=== PATIENT | female | born 2000 | race Caucasian/White ===

== ENCOUNTER 2020-02-24 20:49 | Outpatient (CLI) | payer OTHER, SELFPAY ==
[~2020-02-24] VITALS: Ht 162.6 cm; Wt 87.4 kg
[2020-02-24 21:12] VITALS: BP 140/73
[2020-02-24 21:16] VITALS: BP 145/62
[2020-02-24 21:31] VITALS: BP 123/65
[2020-02-24 21:46] VITALS: BP 135/80
[2020-02-24 22:01] VITALS: BP 128/72
[2020-02-24 22:16] VITALS: BP 128/80
--- NOTE | 2020-02-24 22:19 | IPNPDOC ---
Obstetrical Progress Note Date of Service Feb 24, 2020 Subjective 19yo at 33+5 presented to triage for decreased FM. She denied VB, LOF, contractions. She denied n/v/d, cp, sob, baird, visual changes, abd pain, f/c, vaginal dc, urinary sx. Objective Vital Signs Date Time Temp Pulse Resp B/P (MAP) Pulse Ox O2 Delivery O2 Flow Rate FiO2 02/24/20 21:12 98.4 81 18 140/73 (95) Room Air Assessment Heart Rate (FHR): 140 Variability: Moderate Accelerations: Positive Decelerations: None Heart Rate Tracing: Category I Assessment and Plan Additional Comments 19yo at 33+5 presented to triage for decreased FM. She had a CAT I tracing that was reactive, there was a questionable deceleration at the beginning of the tracing but the baseline had not yet been established. The remainder of the tracing after the baseline was established was category I. Her MVP was 5.2cm, the baby was cephalic, and there was +FM and +breathing making her BP 10/10. Her VS did reveal a mild range BP. She denied si/sx of pre-eclampsia. She reports that she was worked up for pre-eclampsia earlier this and did not have it. I can see in [facility] that she had normal pre-eclampsia labs on [id number] but I do not see documentation of a diagnosis of GHTN. Repeat pre-eclampsia labs today were normal. Will have her follow up in the clinic in 48h for blood pressure check. Provided with return precautions for si/sx of pre-eclampsia. Will start APFT for diagnosis of GHTN with plan for delivery at 37wk. Provided with routine OB return precautions. CIRA AVALOS DO Feb 24, 2020 22:19
[2020-02-24 22:43] LABS: HEMATOCRIT 31.3 % (36.0-47.0); HEMOGLOBIN 10.5 g/dl (12.0-15.5); MEAN CORPUSCULAR HEMOGLOBIN 30.1 pg (27.0-33.0); MEAN CORPUSCULAR HGB CONC 33.5 g/dl (32.0-36.5); MEAN CORPUSCULAR VOLUME 89.7 fl (80.0-96.0); PLATELET COUNT, AUTOMATED 267 10^3/uL (150-450); RED BLOOD COUNT 3.49 10^6/uL (4.00-5.40); WHITE BLOOD COUNT 11.2 10^3/uL (4.0-10.0)
[2020-02-24 23:15] LABS: ALBUMIN 2.5 GM/DL (3.2-5.2); ALT/SGPT 16 U/L (12-78); BILIRUBIN,TOTAL 0.2 MG/DL (0.2-1.0); BLOOD UREA NITROGEN 8 MG/DL (7-18); CALCIUM LEVEL 8.8 MG/DL (8.5-10.1); CARBON DIOXIDE LEVEL 24 MEQ/L (21-32); CHLORIDE LEVEL 110 MEQ/L (98-107); CREATININE FOR GFR 0.86 MG/DL (0.55-1.30); GLUCOSE, FASTING 85 MG/DL (70-100); POTASSIUM SERUM 4.3 MEQ/L (3.5-5.1); SODIUM LEVEL 140 MEQ/L (136-145); TOTAL PROTEIN 5.6 GM/DL (6.4-8.2)
[2020-02-24 23:38] LABS: CREATININE,RANDOM URINE 29.2 MG/DL; TOTAL PROTEIN,RANDOM URINE 5.6 MG/DL (0.0-12.0)
== END 2020-02-24 23:46 | disposition home or self-care (01) ==
LOC: M LDO 20:49
PROVIDERS: ATTEND Obstetrics & Gynecology
DX: O36.8130 Decreased fetal movements, third trimester, not applicable or unspecified (principal); Z3A.33 33 weeks gestation of pregnancy
CPT/HCPCS: 36415; 59025; 76815; 80053; 82570; 84156; 85027; G0378; G0463

== ENCOUNTER 2020-03-04 23:18 | Outpatient (CLI) | payer OTHER ==
[~2020-03-04] VITALS: Ht 162.6 cm; Wt 84.9 kg
[2020-03-04 23:48] VITALS: BP 138/81
--- NOTE | 2020-03-05 00:25 | IPNPDOC ---
Obstetrical Progress Note Date of Service Mar 05, 2020 Subjective S: 19-year-old 1 at 35 weeks presents with elevated blood pressure at home. This patient has been followed for gestational hypertension. She had a diagnosis of the 14th of this month. She reports intermittent headaches has not taken anything for them denies any visual changes or right upper quadrant pain. She states that at home she wasn't feeling well and took her blood pressure and reports blood pressure 170s systolic and as high as 120 diastolic. She also reports active movements. Denies any vaginal bleeding, leakage of fluid or regular pattern of contractions. O: Blood pressures normal to mild range with serial checks afebrile Category 1 heart tracing heart 140s moderate variability with irregular contractions General appearance: Well-appearing no acute distress Abdomen: Gravid nontender to palpation Neuro: Grossly intact Assessment: 19-year-old 1 at 35 weeks with gestational hypertension currently normotensive and asymptomatic Reassuring status Home with labor and preeclampsia precautions. kick count instructions She'll follow-up with [facility] appointment Objective Vital Signs Date Time Temp Pulse Resp B/P (MAP) Pulse Ox O2 Delivery O2 Flow Rate FiO2 03/04/20 23:48 98.4 116 18 138/81 (100) Assessment Variability: Moderate Accelerations: Positive Heart Rate Tracing: Category I Tocometer Contractions: Yes Frequency: irregular Assessment and Plan Age: 19 : 1 Status: Reassuring MOHSEN MEDINA MD. Mar 05, 2020 00:25
== END 2020-03-05 00:23 | disposition home or self-care (01) ==
LOC: M LDO 23:18
PROVIDERS: ATTEND Obstetrics & Gynecology
DX: O13.3 Gestational [pregnancy-induced] hypertension without significant proteinuria, third trimester (principal); Z3A.35 35 weeks gestation of pregnancy
CPT/HCPCS: 59025; G0378; G0463

== ENCOUNTER 2020-03-08 20:03 | Outpatient (CLI) | payer OTHER ==
[~2020-03-08] VITALS: Ht 162.6 cm; Wt 91.6 kg
[2020-03-08 20:24] VITALS: BP 108/52
[2020-03-08] MEDS ORDERED: BUTA-198 PO (20:39)
[2020-03-08] MEDS ORDERED: MULTTAB20 PO (20:39)
[2020-03-08 21:19] LABS: APPEARANCE, URINE CLOUDY (CLEAR); BACTERIA, URINE AUTO 1+ (NEGATIVE); BILIRUBIN, URINE AUTO NEGATIVE (NEGATIVE); BLOOD, URINE BLOOD NEGATIVE (NEGATIVE); COLOR, URINE YELLOW (YELLOW); GLUCOSE, URINE (UA) AUTO NEGATIVE (NEGATIVE); KETONE, URINE AUTO NEGATIVE (NEGATIVE); LEUKOCYTE ESTERASE, URINE AUTO 2+ (NEGATIVE); MUCUS, URINE SMALL (NEGATIVE); NITRITE, URINE AUTO NEGATIVE (NEGATIVE); PROTEIN, URINE AUTO NEGATIVE (NEGATIVE); RBC, URINE AUTO 1 /HPF (0-3); SPECIFIC GRAVITY URINE AUTO 1.009 (1.002-1.035); SQUAMOUS EPITHELIAL CELL UR AU 14 /HPF (0-6); TRANSITIONAL EPITHELIAL AUTO 1 /HPF; UROBILINOGEN, URINE AUTO 0.2 mg/dL (0.0-2.0); WBC, URINE AUTO 41 /HPF (0-3)
[2020-03-08 21:36] VITALS: BP 112/59
--- NOTE | 2020-03-08 21:42 | IPNPDOC ---
Obstetrical Progress Note Date of Service Mar 08, 2020 Subjective 19yo at 35+4 presents for concern for ROM x2 days, clear, no odor. She reports intermittent non-painful contractions. She reports some pink mucous discharge yesterday. She denied decreased FM. She denied n/v/d, cp, sob, baird, visual changes, f/c, vaginal dc, urinary sx. Objective Vital Signs Date Time Temp Pulse Resp B/P (MAP) Pulse Ox O2 Delivery O2 Flow Rate FiO2 03/08/20 20:24 99.0 97 16 108/52 (70) Assessment Heart Rate (FHR): 145 Variability: Moderate Accelerations: Positive Decelerations: None Tocometer Contractions: Yes Frequency: irregular Sterile Vaginal Examination Dilation: None Station: -3 Cervical Consistency: Firm Cervical Position: Posterior Postion/Presentation: Cephalic presentation (by US) Assessment and Plan Status: Reassuring Additional Comments 19yo at 35+4 presents for concern for ROM. Normal VS. CAT I tracing, reactive. Contractions irregular. SVE C/T/H. No pooling. No ferning. Negative nitrazine. Ceph by US. MVP 4.4cm. ROM and labor are unlikley at this time. ANDREA positive for yeast. WP negative. Fluconazole 150mg x1 given in triage for vaginal candidiasis Provided with routine OB return precautions Otherwise to follow up at next [facility] Physical Examination General Exam: Positive: Alert, Cooperative, No Acute Distress ENT EXAM: Positive: Atraumatic, Mucous membr. moist/pink Neck Exam: Positive: Supple Heart Exam: Positive: Rate Normal Abdomen Exam: Positive: Soft Female Exam: Positive: Nl Ext Genitalia Skin Exam: Positive: Nl turgor and temperature Psych Exam: Positive: Mental status NL CIRA AVALOS DO Mar 08, 2020 21:42
[2020-03-08] MEDS ORDERED: FLUCONAZOLE 50MG TABLET PO ONE (21:45)
== END 2020-03-08 22:00 | disposition home or self-care (01) ==
LOC: M LDO 20:03
PROVIDERS: ATTEND Obstetrics & Gynecology
DX: O47.03 False labor before 37 completed weeks of gestation, third trimester (principal); B37.3 Candidiasis of vulva and vagina; Z3A.35 35 weeks gestation of pregnancy
CPT/HCPCS: 59025; 76815; 81001; 87086; G0378; G0463

== ENCOUNTER 2020-03-16 10:23 | Inpatient (IN) | payer OTHER ==
[2020-03-16] VITALS (44 sets, daily range): BP systolic 112–184; BP diastolic 58–110
[~2020-03-16] VITALS: Ht 162.6 cm; Wt 91.4 kg
[~2020-03-16 10:23] MED LIST: BUTA-198 PO; MULTTAB20 PO
[2020-03-16] MEDS ORDERED: NIFEdipine 10 MG CAP As Ordered ONE (10:38)
[2020-03-16] MEDS ORDERED: MAGNESIUM *L&D* 4GM/100ML BAG (40MG/ML) As Ordered ONE (10:40)
[2020-03-16] MEDS ORDERED: MAGNESIUM SULFATE 4% INJ 20GM/500ML (40MG/ML) As Ordered ONE (10:41)
[2020-03-16] MEDS ORDERED: ZOLO25TA PO (10:43)
[2020-03-16] MEDS ORDERED: MAG Sulf (L&D) 4 GM/100 ML 4 GM in IV 1 EA IV ONE (10:45)
[2020-03-16] MEDS: NIFEdipine 10 MG CAP PO ONE ×2 (10:45→10:50)
[2020-03-16] MEDS ORDERED: CALCIUM GLUCONATE 1,000 MG in D5W MINI-BAG PLUS 100 ML IV PRN (10:45)
[2020-03-16] MEDS ORDERED: LABETALOL 100MG/20ML VIAL As Ordered ONE (10:51)
--- NOTE | 2020-03-16 10:59 | HPEPDOC ---
Obstetrical History & Physical General Date of Admission History of Present Illness 18yo at 36+5 by LMP and 8wk US presented to clinic and was noted to have a severe range BP that was persistent on 5min recheck, she already had a diagnosis of GHTN. She noted she had a headache yesterday that resolved with fioricet. She otherwise denied n/v/d, cp, sob, baird now, visual changes, abd pain, f/c, vb, lof, decreased fm, contractions. APC 1. GHTN, now with pre-eclampsia with severe features 2. 72# gain in 3. allergy to PCNs and morphine 4. headaches chronically 5. depression on zoloft 6. GBS unknown and 7. CARD LACER JACQUARD resolved, quad normal Antepartum Course Height (inches): 64 Pre- weight (lbs.): 125 Admission Weight (lbs.): 197 Change in Weight (lbs.): 72 Past Medical History Past Obstetrical History : Past Obstetrical History: [employer] History: No pertinent history Past Medical History Medical History depression, headaches Surgical History: Appendectomy, Other (knee surgery) Family History Significant Family History: No pertinent family hx Social History Marital Status: Family situation: Spouse/partner home Psychosocial History: Depression * Smoker: non-smoker Alcohol: Denies Drugs: denies Imunizations Tdap status: current Influenza Status: declined Allergies Coded Allergies: amoxicillin (Verified Allergy, Severe, ANAPHYLAXIS, 03/08/20) ANAPHYLAXIS morphine (Verified Allergy, Severe, ANAPHYLAXIS, 03/08/20) ANAPHYLAXIS Medications Scheduled No122/Iron/Folic Acid ( Multi Tablet) 1 Each Tablet, 1 TAB PO DAILY Sertraline Hcl (Zoloft) 25 Mg Tablet, 25 MG PO DAILY Scheduled PRN Butalb/Acetaminophen/Caffeine (Xahblp-Ephluuws-Vapl 50-325-40) 1 Each Tablet, 1 TAB PO Q6HP PRN for HEADACHE Physical Examination Physical Examination GENERAL: Alert and oriented times three. BREAST: . ABDOMEN: Gravid and non-tender to touch. FETUS: Is vertex (VTX) by sterile vaginal examination (SVE), fetus is vertex (VTX) by [facility]. HEART RATE: Regular rate and rhythm. LUNGS: Clear to auscultation (CTA). EXTREMITIES: No edema. No clonus. Deep tendon reflexes (DTRs) + . Pertinent Laboratoy Data Blood Type: A+ RBC Antibody Screen: Negative HIV: Negative Hepatitis B: Negative Rapid Plasma Reagin: Nonreactive Rubella: Immune Varicella: Immune Chlamydia/Gonorrhea: Negative Group B Streptococcus: Unknown Quad Screen Test: Negative Cystic Fibrosis: Negative Glucose Tolerance Test: 131 Anatomy Ultrasound Placenta Location: Fundal Normal Anatomy: No (CARD LACER JACQUARD, resolved on repeat scan) Assessment Heart Rate (FHR): 140 Variability: Moderate Accelerations: Positive Tocometer Contractions: No Multi-drug resistant Organism: No history of MDRO Assessment/Plan Assessment 18yo at 36+5 by LMP and 8wk US admitted for GHTN that has progressed to pre-eclampsia with severe features based on persistent severe range BP requiring 20mg IV labetalol on admission. She denied si/sx of pre-eclampsia at this time. APC 1. GHTN, now with pre-eclampsia with severe features 2. 72# gain in 3. allergy to PCNs and morphine 4. headaches chronically 5. depression on zoloft 6. GBS unknown and 7. CARD LACER JACQUARD resolved, quad normal Plan - pre-eclampsia labs with admit labs - GBS ppx for unknown with vanc for PCN allergy - 4g Mg bolus and 2g/h with routine clinical Mg checks - IV antihypertensives for persistent severe range BPs - BP monitoring per pre-e protocol - seizure prophylaxis - strict I/Os - VS per pre-e protocol - clear liquid diet - bedrest as seizure ppx - patient can select em vs bedside comode for strict I/Os - continue zoloft for depression - after patient is admitted fully to the [facility] will perform SVE and begin induction as indicated by her exam - educated on r/b/a of vaginal, , and operative delivery. educated on possible complications of labor and delivery. educated on pre-eclampsia CIRA AVALOS DO Mar 16, 2020 10:59
[2020-03-16] MEDS ORDERED: LABETALOL 100MG/20ML VIAL IV STA (11:10)
[2020-03-16] MEDS: MAG Sulf (OBGYN) 20GM/500ML 20,000 MG in IV 1 EA IV SCH ×2 (11:15→21:23)
[2020-03-16] MEDS: LR 1,000 ML IV SCH (11:16)
[2020-03-16 11:23] LABS: HEMATOCRIT 32.4 % (36.0-47.0); HEMOGLOBIN 10.6 g/dl (12.0-15.5); MEAN CORPUSCULAR HEMOGLOBIN 28.7 pg (27.0-33.0); MEAN CORPUSCULAR HGB CONC 32.7 g/dl (32.0-36.5); MEAN CORPUSCULAR VOLUME 87.8 fl (80.0-96.0); PLATELET COUNT, AUTOMATED 251 10^3/uL (150-450); RED BLOOD COUNT 3.69 10^6/uL (4.00-5.40); WHITE BLOOD COUNT 8.5 10^3/uL (4.0-10.0)
[2020-03-16] MEDS: BETAMETHASONE SOLUSPAN 6MG/ML 5ML VIAL (J0702 PER 3MG) IM SCH (11:35)
[2020-03-16 11:55] LABS: ALT/SGPT 16 U/L (12-78); BILIRUBIN,TOTAL 0.2 MG/DL (0.2-1.0); LDH LACTATE DEHYDROGENASE 176 U/L (84-246); URIC ACID 6.4 MG/DL (2.6-6.0)
[2020-03-16] MEDS ORDERED: VANCOMYCIN HCL 1,000 MG, VIAL MATE ADAPTER 1 EACH in D5W 250 ML IV SCH (12:00)
[2020-03-16 12:45] LABS: TOTAL PROTEIN,RANDOM URINE 16.3 MG/DL (0.0-12.0)
--- NOTE | 2020-03-16 13:09 | IPNPDOC ---
Obstetrical Progress Note Date of Service Mar 16, 2020 Subjective To room for routine assessment. Patient has no complaints or concerns. Assessment Heart Rate (FHR): 140 Variability: Moderate Accelerations: Positive Decelerations: None Heart Rate Tracing: Category I Tocometer Contractions: Yes Frequency: irregular Sterile Vaginal Examination Dilation: 1cm Station: -3 Cervical Consistency: Medium Cervical Position: Posterior Postion/Presentation: Cephalic presentation (by US) Assessment and Plan Status: Reassuring Anticipate: Vaginal Delivery Additional Comments CAT I tracing, reactive. VS now normotensive to mild range. No si/sx of pre-e. SVE 1/T/H. DLFB placed, will also give cytotec 25mcg PO. CIRA AVALOS DO Mar 16, 2020 13:09
[2020-03-16] MEDS: miSOPROStol 25 MCG 1/4 TAB (S0191) PO SCH ×3 (13:25→20:52)
--- NOTE | 2020-03-16 16:28 | IPNPDOC ---
Obstetrical Progress Note Date of Service Mar 16, 2020 Objective Vital Signs Date Time Temp Pulse Resp B/P (MAP) Pulse Ox O2 Delivery O2 Flow Rate FiO2 03/16/20 13:39 88 145/88 (107) 03/16/20 11:39 97.7 18 Assessment Heart Rate (FHR): 130 Variability: Moderate Accelerations: Positive Decelerations: None Heart Rate Tracing: Category I Tocometer Contractions: Yes Frequency: irregular Assessment and Plan Status: Reassuring Additional Comments Strip note: DLFB still firmly in place per report. She recieved cytotec at 1300. No si/sx of magnesium toxicity. Patient is currently on Mg 2g/h and seizure precautions. She has no si/sx of pre-eclampsia. Throughout the day she has had 1 additional severe range after admission but it was mild range on repeat. she recieved BMTZ at 1130. Plan for cytotec q4h 25mcg PO until DLFB out per unit SOP. GBS testing was located and was negative so vanc for GBS ppx was discontinued. Pre-eclampsia/admit labs returned without abnormalities. CIRA AVALOS DO Mar 16, 2020 16:28
--- NOTE | 2020-03-16 20:58 | IPNPDOC ---
Obstetrical Progress Note Date of Service Mar 16, 2020 Subjective Strip note. Objective Vital Signs Date Time Temp Pulse Resp B/P (MAP) Pulse Ox O2 Delivery O2 Flow Rate FiO2 03/16/20 20:15 97.3 03/16/20 19:16 109 16 136/82 (100) Room Air Assessment Heart Rate (FHR): 120 Variability: Moderate Accelerations: Positive Decelerations: None Heart Rate Tracing: Category I Tocometer Contractions: Yes Frequency: regular Assessment and Plan Status: Reassuring Additional Comments DAILY tracing, reactive. VS normotensive to mild range BPs. One severe range with immeiate repeat mild range. Per report no si/sx of pre-eclampsia or Mg toxicity. Good UOP. Contractions not yet strong. Will proceed with second dose of cytotec 25mcg PO as they have spaced out some. Plan for SVE if palpating stronger or before next dose for possible DLFB. CIRA AVALOS DO Mar 16, 2020 20:58
[2020-03-17] VITALS (89 sets, daily range): BP systolic 104–183; BP diastolic 55–97
[2020-03-17] MEDS: miSOPROStol 25 MCG 1/4 TAB (S0191) PO SCH ×2 (01:21→06:19)
--- NOTE | 2020-03-17 01:30 | IPNPDOC ---
Obstetrical Progress Note Date of Service Mar 17, 2020 Subjective Strip note. Objective Vital Signs Date Time Temp Pulse Resp B/P (MAP) Pulse Ox O2 Delivery O2 Flow Rate FiO2 03/17/20 00:16 97.5 93 17 120/63 (82) 03/16/20 19:16 Room Air Assessment Heart Rate (FHR): 120 Variability: Moderate Accelerations: Positive Decelerations: None Heart Rate Tracing: Category I Tocometer Contractions: Yes Frequency: regular Assessment and Plan Status: Reassuring Anticipate: Vaginal Delivery Additional Comments CAT I tracing, reactive. DLFB in place. VS now normotensive. No si/sx of pre- eclampsia or Mg toxicity. Will continue IOL with DLFB/cytotec until cytotec 4 doses or until DLFB comes out then will transition to pitocin. CIRA AVALOS DO Mar 17, 2020 01:30
[2020-03-17 05:43] LABS: HEMATOCRIT 32.2 % (36.0-47.0); HEMOGLOBIN 10.5 g/dl (12.0-15.5); MEAN CORPUSCULAR HEMOGLOBIN 28.7 pg (27.0-33.0); MEAN CORPUSCULAR HGB CONC 32.6 g/dl (32.0-36.5); PLATELET COUNT, AUTOMATED 287 10^3/uL (150-450); RED BLOOD COUNT 3.66 10^6/uL (4.00-5.40); WHITE BLOOD COUNT 15.6 10^3/uL (4.0-10.0)
[2020-03-17 06:07] LABS: ALBUMIN 2.4 GM/DL (3.2-5.2); ALT/SGPT 13 U/L (12-78); BILIRUBIN,TOTAL 0.2 MG/DL (0.2-1.0); BLOOD UREA NITROGEN 7 MG/DL (7-18); CALCIUM LEVEL 6.9 MG/DL (8.5-10.1); CARBON DIOXIDE LEVEL 20 MEQ/L (21-32); CHLORIDE LEVEL 107 MEQ/L (98-107); CREATININE FOR GFR 0.67 MG/DL (0.55-1.30); GLUCOSE, FASTING 118 MG/DL (70-100); MAGNESIUM LEVEL 6.4 MG/DL (1.8-2.4); POTASSIUM SERUM 4.4 MEQ/L (3.5-5.1); SODIUM LEVEL 137 MEQ/L (136-145); TOTAL PROTEIN 5.3 GM/DL (6.4-8.2)
[2020-03-17] MEDS: MAG Sulf (OBGYN) 20GM/500ML 20,000 MG in IV 1 EA IV SCH ×2 (07:29→17:42)
[2020-03-17] MEDS ORDERED: OXYTOCIN DRIP 30 UNITS in IV 1 EA IV SCH ×2 (09:00→10:15)
[2020-03-17] MEDS ORDERED: SLF 3 ML SYR IV PRN (11:15)
[2020-03-17] MEDS: BETAMETHASONE SOLUSPAN 6MG/ML 5ML VIAL (J0702 PER 3MG) IM SCH (11:23)
[2020-03-17] MEDS: SLF 3 ML SYR IV SCH ×2 (11:23→22:00)
[2020-03-17] MEDS: LR 1,000 ML IV SCH (12:11)
[2020-03-17 19:10] LABS: HEMATOCRIT 33.8 % (36.0-47.0); MEAN CORPUSCULAR HEMOGLOBIN 28.9 pg (27.0-33.0); MEAN CORPUSCULAR HGB CONC 32.5 g/dl (32.0-36.5); MEAN CORPUSCULAR VOLUME 88.7 fl (80.0-96.0); PLATELET COUNT, AUTOMATED 279 10^3/uL (150-450); RED BLOOD COUNT 3.81 10^6/uL (4.00-5.40)
[2020-03-17] MEDS ORDERED: FENTANYL 2MCG/ML ROPIVACAINE 0.2% IN 0.9% NACL 100ML IVBAG As Ordered ONE (20:10)
[2020-03-17] MEDS ORDERED: LACTATED RINGER'S 1000 ML IV PRN (20:37)
[2020-03-17] MEDS ORDERED: REFRIGERATOR IV KEYS XX PRN (20:37)
[2020-03-17] MEDS ORDERED: diphenhydrAMINE 50MG/ML VIAL (J1200) IV PRN (20:37)
[2020-03-17] MEDS ORDERED: EPIDURAL COMMENT XX SCH (20:37)
[2020-03-17] MEDS ORDERED: ONDANSETRON 4MG/2ML VIAL IV PRN (20:37)
[2020-03-17] MEDS ORDERED: FENTANYL/ROPIVACAINE/NACL BAG 100 ML EPIDURAL SCH (20:37)
[2020-03-17] MEDS ORDERED: EPIDURAL/PCA KEYS XX PRN (20:37)
[2020-03-17] MEDS ORDERED: NALOXONE INJ 0.4MG/1ML VIAL (J2310 PER 1MG) IV PRN (20:37)
[2020-03-17] MEDS ORDERED: ePHEDrine SULFATE 25 MG/5 ML(5MG/ML) SYRINGE IV PRN (20:37)
[2020-03-18] VITALS (55 sets, daily range): BP systolic 124–192; BP diastolic 57–100
[2020-03-18] MEDS ORDERED: BUTORPHANOL 2 MG/ML INJ (J0595) IV ONE ×3 (03:00→08:30)
[2020-03-18] MEDS ORDERED: PROMETHAZINE INJ 25 MG/ML VIAL (J2550) IM ONE (03:00)
[2020-03-18] MEDS: SLF 3 ML SYR IV SCH (06:00)
[2020-03-18] MEDS ORDERED: PROMETHAZINE INJ 25 MG/ML VIAL (J2550) IV PRN (08:30)
[2020-03-18] MEDS: MAG Sulf (OBGYN) 20GM/500ML 20,000 MG in IV 1 EA IV SCH (10:45)
[2020-03-18] MEDS: LR 1,000 ML IV SCH (10:54)
[2020-03-18] MEDS ORDERED: OXYTOCIN 30 UNITS IN 0.9% NaCl 500ML IV BAG (J2590) As Ordered ONE (12:21)
[2020-03-18] MEDS ORDERED: OXYTOCIN DRIP 30 UNITS in IV 1 EA IV SCH (12:33)
[2020-03-18] MEDS ORDERED: ACETAMINOPHEN 500 MG TAB PO PRN (12:45)
[2020-03-18] MEDS ORDERED: RHOGAM 300 MCG (1500 IU) INJ (J2790) IM SCH (12:45)
[2020-03-18] MEDS ORDERED: IBUPROFEN 800 MG TAB PO PRN (12:45)
[2020-03-18] MEDS ORDERED: DIBUCAINE 1% OINTMENT 30GM TOP PRN (12:45)
[2020-03-18] MEDS ORDERED: DOCUSATE SODIUM 100 MG CAP PO PRN (12:45)
[2020-03-18] MEDS ORDERED: MEASLES,MUMPS,RUBELLA VACCINE INJ (MMR-II) (90707) SC SCH (12:45)
[2020-03-18] MEDS ORDERED: METHYLERGONOVINE MALEATE 0.2 MG TAB PO PRN (12:45)
[2020-03-18] MEDS ORDERED: ANUSOL HC CREAM 30GM TOP PRN (12:45)
[2020-03-18] MEDS ORDERED: MOM 30ML SUSPENSION UDC PO PRN (12:45)
[2020-03-18] MEDS ORDERED: ACETAMINOPHEN TAB 650MG DOSE (2X325MG) PO PRN (12:45)
--- NOTE | 2020-03-18 13:19 | DNPDOC ---
[facility] Delivery Note Delivery Note DATE OF DELIVERY: 03/18/2020 TIME OF : 1201 GENDER: Male. APGARS: 6 and 8. WEIGHT: 2730 grams or 6 pounds 0 ounces. LACERATIONS:. 1MLL ANESTHESIA: none ESTIMATED BLOOD LOSS: 300ml COUNTS: 5 laparotomy sponges accounted for prior to after delivery. 2 Shapes removed from delivery field. DELIVERY NOTE: On 03/18/2020 at 1201, Mrs. Viramontes a 19-year-old 1 now para 1, had a spontaneous vaginal delivery of viable male infant, Apgars, 6 and 8 and weight 2730 g or 6 lbs. 0 oz. Head was delivered occiput anterior (OA), followed by delivery of the shoulders and corpus. was handed to mom with a good cry. Cord was clamped times two and was cut by support person under my direction. Placenta was then drained and delivered grossly intact. A premixed bag of 500 mL of normal saline with 30 units of Pitocin was then bolused along with uterine massage until the uterus was firm. On inspection, there was a 1MLL repaired with 3-0 Vicryl. On reinspection, cervix, vagina, perineum was grossly intact and hemostatic. Mom and baby in recovery on stable condition. The couple decided to name in son, MOHSEN Tilley MD. Mar 18, 2020 13:19
[2020-03-18] MEDS ORDERED: MAG Sulf (OBGYN) 20GM/500ML 20,000 MG in IV 1 EA IV SCH (14:45)
[2020-03-18] MEDS ORDERED: LIDOCAINE 1% MDV 20ML VIAL INFIL ONE (15:00)
[2020-03-18] MEDS: IBUPROFEN 600MG TAB PO PRN (16:35)
[2020-03-19] VITALS (16 sets, daily range): BP systolic 127–175; BP diastolic 59–90
[2020-03-19] MEDS: IBUPROFEN 600MG TAB PO PRN ×2 (06:59→19:37)
[2020-03-19] MEDS: PRENATAL VITAMINS CHEWABLE TABLET PO SCH (07:24)
--- NOTE | 2020-03-19 12:42 | IPN ---
DATE: 03/17/2020 SUBJECTIVE: This lady is a 19-year-old 1, para 0, at 36 and 6 day who is a direct admission from the office because of elevated blood pressure in the severe range areas. She has a headache but she normally has headaches which resolve with Fioricet. She had received a em bulb and Cytotec 25 mg and she has had one shot of Betamethasone at 11:30 a.m. Her lab work shows that her protein creatinine ratio is .159, her uric acid elevated at 6.4, mag level is at 6.4 after therapeutic dose and running at 2 grams an hour. PHYSICAL EXAMINATION: This morning, her blood pressure is labile but it is all within either normal or mid range blood pressures. Reflexes are 2-3+. She has some pedal edema. She is shaking but I think it is secondary to anxiety. Urine voiding is going well and she has a moderate output. We removed the em catheter bulb. She is posterior, high, not engaged in the pelvis, vertex. No vag bleeding or loss. Maybe 2 cm. Category 1 strip. PLAN: Augment with Pitocin, Epidural as needed. Plan of care reviewed with the patient and . YAAKOV
--- NOTE | 2020-03-19 12:45 | IPN ---
DATE: 03/17/2020 TIME: 1930 hours This lady is a 18-year-old, 1, para 0 at 36 and now 6, was admitted straight from the clinic because of severe range blood pressures. She had Mcleod bulb instituted and eventually had magnesium sulfate instituted for preeclamptic prophylaxis. The Mcleod bulb catheter was removed. She had Pitocin running up to 20 milliunits per minute, category 1 strip. At 1930 hours, we evaluated her, she was 3 cm, posterior, soft, 60% effaced, -3 station, category 1 strip, an artificial rupture of membranes (AROM) was done draining clear liquor. Vital signs: Her blood pressure is 136/86, respirations 18, pulse 94, and temperature is 97.6. Pitocin was pulled back because of the AROM and we had a discussion regarding analgesia in the form of an epidural. Patient will reassess her pain level and we will order a consultation with anesthesia for epidural. At this point, she is going to start progressing and we anticipate vaginal delivery as long as category 1 strip is maintained. Her magnesium level on reevaluation was 7.2, previously 6.4. Her hematology: Her hemoglobin presently is 11.0, hematocrit 33.8, and platelets are 279. Is safe to proceed. [facility] [place]
--- NOTE | 2020-03-19 13:15 | IPNPDOC ---
Progress Note Date of Service: Mar 19, 2020 Day#: 1 Progress Note Cat is a 19yo G1 now P1 s/p after IOL For preeclampsia with severe feat ures. She has remained asymptomatic since delivery. UOP excellent. BP noted to have occasional severe range attributed to displaced cuff as repeat BP after replacement of cuff was normal. She has now completed 24hrs of magnesium therapy . Will discontinue magnesium therapy now and transfer to [facility]. Will continue to monitor BPs, if severe-range develop will start on PO antihypertensives. VS, I&O, 24H, Fishbone Vital Signs/I&O Vital Signs Date Time Temp Pulse Resp B/P (MAP) Pulse Ox O2 Delivery O2 Flow Rate FiO2 03/19/20 11:20 97.4 20 99 Room Air 03/19/20 11:02 77 145/87 (106) I&O- Last 24 Hours up to 6 AM 03/19/20 06:00 Intake Total 4872 ml Output Total 4700 ml Balance 172 ml TRAV GUNN DO Mar 19, 2020 13:15
--- NOTE | 2020-03-19 16:26 | IPN ---
DATE: 03/17/2020 SUBJECTIVE: This lady was induced for severe range blood pressures. She had Pitocin running. Mcleod bulb was in place. We removed the Mcleod bulb, found her to be 2 cm, very posterior, -4 station. Therefore, we initiated Pitocin, starting at 2 milliunits per minute and increasing 2 x 2 x 40. We anticipate some progression. Category 1 strip. Her blood pressure on evaluation was 138/81, respirations 18, pulse 102 and temperature is 97.1. ASSESSMENT/PLAN: Presently with the category 1 strip. Reflexes are normal. Respirations are intact. Safe to proceed. Edited: roberto 03/19/2020 1629 MTDD
--- NOTE | 2020-03-19 16:28 | IPN ---
DATE: 03/17/2020 SUBJECTIVE: This lady was admitted for gestational hypertension with severe range blood pressure. She was started on mag sulfate, Mcleod bulb catheter and Pitocin. On assessment presently, the cervix is soft. She is 3 cm posterior with bulging membranes, -3 station, category 1 strip. She is going to have planned AROM. At the present time is not having significant pain management issues. Again, we offered epidural, which will help control her blood pressures and maintain her labor pattern. Her vital signs presently are 137/86, respirations 18, pulse 96 and she is afebrile. ASSESSMENT/PLAN: If safe to proceed, will reevaluate in two hours for rupture of membranes. The patient expressed understanding plan of care. YAAKOV
[2020-03-20 02:00] VITALS: BP 135/72
[2020-03-20 05:38] VITALS: BP 118/74
[2020-03-20] MEDS: PRENATAL VITAMINS CHEWABLE TABLET PO SCH (08:56)
[2020-03-20] MEDS: IBUPROFEN 600MG TAB PO PRN (08:56)
--- NOTE | 2020-03-20 09:29 | IPN ---
DATE: 03/17/2020 TIME OF SERVICE: 2200 hours This lady is a 36 and 6 now who was admitted from the clinic because of severe range blood pressures and she was having induction of labor because of her severe range blood pressures. She was having adequate contractions on magnesium sulfate with an appropriate therapeutic level and Pitocin. She had a little bit of a leak and then had an artificial rupture of membranes (AROM) with clear liquor, at which time her contractions picked up and she requested an epidural. Anesthesia was involved and the epidural turned into a very high spinal in which the patient was having difficulty in breathing, could not feel any feeling from her thoracic area down to her toes. She required vigorous stimulation in order to breathe and we had an Ambu and were ready to ventilate the patient if required. The Pitocin was turned off and the magnesium sulfate had to be turned off in order for her to be able to recover from this high spinal. During the time that the high spinal was present, her blood pressures were in the mid range, anywhere from 147/84 to 145/96 to 144/85. The heart rate variability was minimal but there was no decelerations and her contractions petered out. She eventually started to get some feeling back and was able to breathe. Her blood pressures came down to 126/79, 133/82, 136/88. The heart rate returned to moderate variability with accelerations with good [id number] and a normal baseline of around 130. We initiated again her magnesium sulfate at 1 gram/hr as she was starting to have some tremulous activity, and after discussing with her mother we find that she had pseudoseizures for which they treated with Ativan although that is not indicated in her chart nor did she divulge that during any of her visits to the office. Presently, she is much better, she is breathing on her own, does not require stimulation. Contractions are still spaced but we have good variability and after a comfortable period of time with the magnesium sulfate running, we will initiate Pitocin. At the present time, it is safe to proceed. YAAKOV
[2020-03-20 10:00] VITALS: BP 142/76
[2020-03-20] MEDS ORDERED: DOCU100C16 PO (12:47)
[2020-03-20] MEDS ORDERED: DIBU10OI TOP (12:47)
[2020-03-20] MEDS ORDERED: IBUP80TA PO (12:47)
--- NOTE | 2020-03-24 09:43 | DS ---
DATE OF ADMISSION: 03/16/2020 DATE OF DISCHARGE: 03/20/2020 This is a 19-year-old 1, now para 1 who was admitted for induction of labor for gestational hypertension and pre-eclampsia. She had initially intravenous (IV) medications for pain, then had an epidural, which ended up as a very high spinal, requiring breathing resuscitation. At that time we had to turn off the Pitocin, turn off the magnesium sulfate, and the epidural catheter was pulled. She eventually got fully dilated. Without any further medication delivered a live- male infant, weighing 6 pounds 0 ounces, 2730 grams, scores of 6 and 8 at one and five minutes, respectively. her hemoglobin was 11.0, hemoglobin 33.8, and platelets were 279. Her chemistry tracking during her induction and labor: Her magnesium levels were at therapeutic levels, and her uric acid was 6.4. Her protein/creatinine ratio was in the range for delivery. On discharge, her blood pressure was 142/76, respirations 17, pulse 71, temperature 98.3. We discussed phlebitis, cystitis, mastitis, endometritis, and cellulitis, diet, exercise, pain management, perineal, breast, and wound care. On discharge, she is normocephalic, atraumatic. Neck: Full range of motion. Pupils equal and reactive to light. Distal pulses are symmetric. No evidence of deep venous thrombosis (DVT), pulmonary embolus (PE), or superficial phlebitis. Chest is clear bilaterally to bases. No wheezes or rhonchi. No costovertebral angle (CVA) tenderness. Abdomen soft. Four-quadrant bowel sounds are noted. Perineum is intact. She has no rashes, lesions or pruritus. No arthralgia, myalgia. No complaints of cough, wheeze, shortness of breath, or dyspnea on exertion. No nausea, vomiting, diarrhea, or constipation. No urgency or frequency. In summary, we have a 36-5/7 weeks, 1, induced for gestational hypertension, query pre-eclampsia, delivered a live- male infant. Presently the baby is in intensive care unit (NICU). Other had 24 hours of magnesium sulfate. Is now off the magnesium sulfate, feeling much better, and she is going to be discharged home. She has a 2-week blood pressure check at [facility] and a 6-week check. All questions were answered. Medications were dispensed at [place]. Patient was discharged improved. [facility]
== END 2020-03-20 12:55 | disposition home or self-care (01) | DRG 807 ==
LOC: M LDO 10:23 → M LDI 10:50 → M OBS 03-19 14:36
PROVIDERS: ADMIT Registered Nurse Maternal Newborn; ATTEND Registered Nurse Maternal Newborn
PROC: 3E0DXGC Introduction of Other Therapeutic Substance into Mouth and Pharynx, External Approach (ICD-10-PCS; 2020-03-16)
PROC: 3E033VJ Introduction of Other Hormone into Peripheral Vein, Percutaneous Approach (ICD-10-PCS; 2020-03-16)
PROC: 10907ZC Drainage of Amniotic Fluid, Therapeutic from Products of Conception, Via Natural or Artificial Opening (ICD-10-PCS; 2020-03-17)
PROC: 10E0XZZ Delivery of Products of Conception, External Approach (ICD-10-PCS; principal; 2020-03-18)
PROC: 0HQ9XZZ Repair Perineum Skin, External Approach (ICD-10-PCS; 2020-03-18)
DX: O14.14 Severe pre-eclampsia complicating childbirth (principal); Z37.0 Single live birth; Z3A.36 36 weeks gestation of pregnancy; F32.9 Major depressive disorder, single episode, unspecified; O99.344 Other mental disorders complicating childbirth; Z88.0 Allergy status to penicillin; Z88.5 Allergy status to narcotic agent; O70.0 First degree perineal laceration during delivery

== ENCOUNTER 2020-08-28 19:39 | Emergency (ER) | payer OTHER ==
[~2020-08-28] VITALS: Ht 162.6 cm; Wt 77.5 kg
[~2020-08-28 19:39] MED LIST changes: +DIBU10OI TOP; +DOCU100C16 PO; +IBUP80TA PO; +ZOLO25TA PO
[2020-08-28 19:45] VITALS: BP 131/80
[2020-08-28] MEDS ORDERED: NORE1TAB7 (19:50)
[2020-08-28 20:45] LABS: BASO # 0.1 10^3/uL (0.0-0.2); BASO % 0.6 % (0.0-1.0); EOS # 0.1 10^3/uL (0.0-0.5); EOS % 1.2 % (0.0-3.0); HEMATOCRIT 41.8 % (36.0-47.0); HEMOGLOBIN 13.9 g/dl (12.0-15.5); LYMPH # 3.2 10^3/uL (1.5-5.0); LYMPH % 36.3 % (24.0-44.0); MEAN CORPUSCULAR HEMOGLOBIN 29.6 pg (27.0-33.0); MEAN CORPUSCULAR HGB CONC 33.3 g/dl (32.0-36.5); MEAN CORPUSCULAR VOLUME 88.9 fl (80.0-96.0); MONO # 0.6 10^3/uL (0.0-0.8); MONO % 6.2 % (2.0-8.0); NEUTROPHILS % 55.5 % (36.0-66.0); PLATELET COUNT, AUTOMATED 297 10^3/uL (150-450); WHITE BLOOD COUNT 8.9 10^3/uL (4.0-10.0)
[2020-08-28] MEDS ORDERED: DICYCLOMINE INJ 20MG/2ML (J0500) IM ONE (20:50)
[2020-08-28] MEDS ORDERED: GI COCKTAIL 50ML BTL(HYOSCYAMINE/MAALOX/LIDOCAINE VISCOUS)(1:3:1) PO ONE (20:50)
[2020-08-28] MEDS ORDERED: ONDANSETRON 4MG/2ML VIAL IV ONE (20:50)
[2020-08-28] MEDS ORDERED: NS 1,000 ML IV ONE (20:50)
[2020-08-28 20:58] LABS: ALBUMIN 4.4 GM/DL (3.2-5.2); ALT/SGPT 20 U/L (12-78); BILIRUBIN,DIRECT < 0.1 MG/DL (0.0-0.2); BILIRUBIN,TOTAL 0.3 MG/DL (0.2-1.0); LIPASE 131 U/L (73-393); TOTAL PROTEIN 7.5 GM/DL (6.4-8.2)
[2020-08-28] MEDS ORDERED: CARA1TAB6 PO (22:34)
[2020-08-28] MEDS ORDERED: PROT1TAB2 PO (22:34)
== END 2020-08-28 22:47 | disposition home or self-care (01) ==
LOC: M ED 19:39
DX: K29.70 Gastritis, unspecified, without bleeding (principal); Z88.1 Allergy status to other antibiotic agents; Z88.6 Allergy status to analgesic agent; Z79.899 Other long term (current) drug therapy